=== PATIENT | male | born 1965 | race African-American/Black ===

== ENCOUNTER 2017-02-04 14:54 | Emergency (ER) | payer OTHER ==
[~2017-02-04] VITALS: Ht 177.8 cm; Wt 85.0 kg
[2017-02-04 17:38] VITALS: BP 129/88
== END 2017-02-04 17:38 | disposition home or self-care (01) ==
LOC: ER 14:54
DX: I83.891 Varicose veins of right lower extremity with other complications (principal); I13.0 Hypertensive heart and chronic kidney disease with heart failure and stage 1 through stage 4 chronic kidney disease, or unspecified chronic kidney disease; I50.9 Heart failure, unspecified; N18.9 Chronic kidney disease, unspecified; E78.00 Pure hypercholesterolemia, unspecified; Z95.0 Presence of cardiac pacemaker
CPT/HCPCS: 99283; Z7610

== ENCOUNTER 2021-03-27 13:17 | Emergency (ER) | payer OTHER, MEDICAID ==
[~2021-03-27] VITALS: Ht 170.2 cm; Wt 75.0 kg
[2021-03-27] MEDS ORDERED: FUROSEMIDE 40MG/4ML VIAL IV ONE (14:15)
[2021-03-27] MEDS ORDERED: MORPHINE SULFATE 2 MG/ML CPJ (NOT FOR IM USE) IV ONE (14:30)
[2021-03-27 14:55] LABS: CHLORIDE 96 mEq/L (98-107)
[2021-03-27 15:12] LABS: EOSINOPHILS % 1.9 % (0.0-5.0); HEMATOCRIT. 32.3 % (42.0-52.0); HEMOGLOBIN. 10.8 g/dL (14.0-18.0); LYMPHOCYTES % 10.8 % (20.0-50.0); MEAN CORPUSCULAR HEMOGLOBIN 38.4 pg (28.0-32.0); MEAN CORPUSCULAR VOLUME 115.1 fL (80.0-94.0); MEAN PLATELET VOLUME 8.1 fl (7.4-10.4); MONOCYTES % 9.1 % (2.0-8.0); NEUTROPHILS % 77.2 % (40.0-76.0); PLATELET 226 x1000/uL (130-400); RED CELL DISTRIBUTION WIDTH 18.3 % (11.6-14.6)
[2021-03-27 16:28] VITALS: BP 110/62
[2021-03-27 16:41] LABS: PLATELET ESTIMATE NORMAL
[2021-03-27] MEDS ORDERED: LORAZEPAM 2MG/ML CPJ IV ONE (18:15)
== END 2021-03-27 20:18 | disposition left against medical advice (07) ==
LOC: ER 13:17 → CANBEDREQ 23:19
DX: I13.2 Hypertensive heart and chronic kidney disease with heart failure and with stage 5 chronic kidney disease, or end stage renal disease (principal); R06.03 Acute respiratory distress; N18.6 End stage renal disease; I50.9 Heart failure, unspecified; E78.00 Pure hypercholesterolemia, unspecified; D63.1 Anemia in chronic kidney disease; Z20.822 Contact with and (suspected) exposure to COVID-19; Z95.0 Presence of cardiac pacemaker; Z99.2 Dependence on renal dialysis
CPT/HCPCS: 36415; 71045; 80053; 83880; 84484; 85025; 87426; 93005; 94660; 96374; 96375; 99291; J1940; J2060; J2270